=== PATIENT | male | born 1960 | race Native Hawaiian/Other Pacific Islander ===

== ENCOUNTER 2017-02-09 18:05 | Emergency (ER) | payer OTHER ==
[2017-02-09 18:08] VITALS: BMI 29.0
[2017-02-09] MEDS ORDERED: Albuterol-Ipratrop 3 mg / 0.5 (3 ml) UD INH STA (18:10)
[2017-02-09 18:13] VITALS: RESP 18
[2017-02-09] MEDS ORDERED: Albuterol-Ipratrop 3 mg / 0.5 (3 ml) UD ONE (18:15)
--- NOTE | 2017-02-09 18:16 | C.PDOC ---
History Of Present Illness 56 y/o male has hx of asthma and presents to the ED c/o coughing and itchy throat that has been worsening the last few days. The DELIVERY DRIVER gave the patient antibiotics to alleviate his symptoms. The patient states "that he has never been hospitalized or intubated before in his life". The patient denies fever, chills,chest pain, headaches, and sore throat. Time Seen by Provider: 02/09/17 18:06 Chief Complaint (Nursing): Shortness Of Breath History Per: Patient History/Exam Limitations: no limitations Onset/Duration Of Symptoms: Days Current Symptoms Are (Timing): Still Present Past Medical History Reviewed: Historical Data, Nursing Documentation, Vital Signs Vital Signs: Last Vital Signs Temp 98.1 F 02/09/17 18:57 Pulse 88 02/09/17 18:57 Resp 18 02/09/17 18:57 BP 118/77 02/09/17 18:57 Pulse Ox 99 02/09/17 18:57 - Medical History PMH: Asthma, HTN Denies: Chronic Kidney Disease Surgical History: No Surg Hx Family History: States: Unknown Family Hx - Social History Hx Tobacco Use: Yes (some days) Hx Alcohol Use: Yes (SOCIALLY) Hx Substance Use: No - Immunization History Hx Tetanus Toxoid Vaccination: No Hx Influenza Vaccination: Yes Hx Pneumococcal Vaccination: No Review Of Systems Except As Marked, All Systems Reviewed And Found Negative. Constitutional: Negative for: Fever, Chills Cardiovascular: Negative for: Chest Pain Respiratory: Positive for: Cough. Negative for: Shortness of Breath Physical Exam - Physical Exam Appears: Non-toxic, No Acute Distress Skin: Warm, Dry Oral Mucosa: Moist Throat: Erythema (Pharynx ), No Exudate, No Drooling Neck: Supple Chest: Symmetrical, No Deformity, No Tenderness Cardiovascular: Rhythm Regular Respiratory: No Rales, No Rhonchi, Other (mild diminish breathe sound bilaterally) Gastrointestinal/Abdominal: Soft, No Tenderness, No Guarding, No Rebound Extremity: Normal ROM, Capillary Refill (<2sec.) Neurological/Psych: Oriented x3, Normal Speech, Normal Cognition Gait: Steady ED Course And Treatment Progress Note: The patient received a chest X ray. The patient was administered Albuterol, Prednisone, and an inhaled Nebulizer. Medical Decision Making Medical Decision Making: cxr neg. neb given, prednisone dosed. pt reports improvement. cxr neg as read by me. strep, influenza neg. Disposition - Disposition Disposition: HOME/ ROUTINE Disposition Time: 07:00 Condition: STABLE Additional Instructions: return to er with worsening symptoms or concerns. Prescriptions: predniSONE [predniSONE Tab] 50 mg PO DAILY #3 tab Prednisone 50 mg PO DAILY #3 tablet Instructions: Tonsillitis (ED), Viral Syndrome (ED) Forms: [employer] (Albanian) - Clinical Impression Clinical Impression: Bronchitis - Scribe Statement The provider has reviewed the documentation as recorded by the Scribjamie Burgess All medical record entries made by the Josefibjamie were at my direction and personally dictated by me. I have reviewed the chart and agree that the record accurately reflects my personal performance of the history, physical exam, medical decision making, and the department course for this patient. I have also personally directed, reviewed, and agree with the discharge instructions and disposition.
[2017-02-09 18:59] VITALS: BP 118/77; PULSE 88; TEMP 98.1; O2SAT 99
--- NOTE | 2017-02-10 12:14 | RAD ---
HISTORY: cough COMPARISON: No prior. FINDINGS: LUNGS: No active pulmonary disease. PLEURA: No significant pleural effusion identified, no pneumothorax apparent. CARDIOVASCULAR: Normal. OSSEOUS STRUCTURES: No significant abnormalities. VISUALIZED UPPER ABDOMEN: Normal. OTHER FINDINGS: None. IMPRESSION: No active disease.
== END 2017-02-09 19:00 | disposition home or self-care (01) ==
LOC: C.ER 18:05
DX: J40 Bronchitis, not specified as acute or chronic (principal)

== ENCOUNTER 2017-06-21 00:59 | Emergency (ER) | payer OTHER ==
[2017-06-21 00:59] VITALS: BMI 29.0
[2017-06-21 01:06] VITALS: RESP 20; O2SAT 97
--- NOTE | 2017-06-21 01:15 | C.PDOC ---
History Of Present Illness 56 year old male presents to the ED c/o right 3rd and 4th toe pain that started earlier tonight while attending a concert. Patient denies known trauma, fever or other complaints. Time Seen by Provider: 06/21/17 01:03 Chief Complaint (Nursing): Lower Extremity Problem/Injury History Per: Patient History/Exam Limitations: no limitations Onset/Duration Of Symptoms: Hrs Current Symptoms Are (Timing): Still Present Additional History Per: Patient - Ankle/Foot Description Of Injury: Other Past Medical History Reviewed: Historical Data, Nursing Documentation, Vital Signs Vital Signs: Last Vital Signs Temp 97.7 F 06/21/17 02:19 Pulse 90 06/21/17 02:19 Resp 20 06/21/17 02:19 BP 125/85 06/21/17 02:19 Pulse Ox 97 06/21/17 02:19 - Medical History PMH: Asthma, HTN Denies: Chronic Kidney Disease Surgical History: No Surg Hx Family History: States: Unknown Family Hx - Social History Hx Tobacco Use: Yes (some days) Hx Alcohol Use: Yes (SOCIALLY) Hx Substance Use: No - Immunization History Hx Tetanus Toxoid Vaccination: Yes Hx Influenza Vaccination: Yes Hx Pneumococcal Vaccination: No Review Of Systems Except As Marked, All Systems Reviewed And Found Negative. Musculoskeletal: Positive for: Foot Pain Skin: Positive for: Other (swelling) Physical Exam - Physical Exam Appears: Non-toxic, No Acute Distress Skin: Normal Color, Warm, Dry Head: Atraumatic, Normacephalic Eye(s): bilateral: Normal Inspection Nose: No Discharge, No Deformity Oral Mucosa: Moist Neck: Normal ROM, Supple Chest: Symmetrical Cardiovascular: Rhythm Regular, No Murmur Respiratory: Normal Breath Sounds, No Rales, No Rhonchi, No Wheezing Gastrointestinal/Abdominal: Soft, No Tenderness, No Guarding, No Rebound Extremity: Normal ROM (no pain), Tenderness (mild right 3rd and 4th toes), Capillary Refill (< 2 seconds), No Deformity, Swelling (minimal right 3rd and 4th toes) Pulses: Left Dorsalis Pedis: Normal, Right Dorsalis Pedis: Normal Neurological/Psych: Oriented x3, Normal Speech, Normal Cognition Gait: Steady ED Course And Treatment - Laboratory Results Result Diagrams: 06/21/17 01:47 06/21/17 01:47 O2 Sat by Pulse Oximetry: 97 (On RA) Pulse Ox Interpretation: Normal Medical Decision Making Medical Decision Making: Impression : right 3rd and 4th toe pain and swelling Plan: * Labs * Toradol 30 mg IVP * Right foot X-Ray pt delcines to wait for lab results in er. pain improved. advise outpt fu and return precautions. normal rom. no leukocytosis, afebrile, xr neg as read by me Disposition - Disposition Disposition: HOME/ ROUTINE Disposition Time: 01:00 Condition: STABLE Additional Instructions: follow up with your animal care technician. return to er with worsening symptoms or concerns. Instructions: Foot Sprain (ED), Arthralgia (ED) Forms: [employer] (Mozambican) - Clinical Impression Clinical Impression: Toe pain - Scribe Statement The provider has reviewed the documentation as recorded by the Scribe Mj Calderón All medical record entries made by the Scribe were at my direction and personally dictated by me. I have reviewed the chart and agree that the record accurately reflects my personal performance of the history, physical exam, medical decision making, and the department course for this patient. I have also personally directed, reviewed, and agree with the discharge instructions and disposition.
[2017-06-21 01:50] LABS: BASO # 0.1 K/uL (0.0-0.2); BASO % 1.4 % (0.0-2.0); EOS # 0.2 K/uL (0.0-0.7); EOS % 2.3 % (0.0-4.0); HEMOGLOBIN 16.5 g/dL (12.0-18.0); LYMPH # 3.4 K/uL (1.0-4.3); LYMPH % 37.9 % (20.0-40.0); MEAN CELL VOLUME 91.7 fL (80.0-94.0); MEAN CORPUSCULAR HEMOGLOBIN 31.9 pg (27.0-31.0); MEAN CORPUSCULAR HGB CONC 34.8 g/dL (33.0-37.0); MEAN PLATELET VOLUME 8.9 fL (7.2-11.7); MONO # 0.9 K/uL (0.0-0.8); MONO % 10.2 % (0.0-10.0); NEUT # 4.3 K/uL (1.8-7.0); NEUT % 48.2 % (50.0-75.0); RBC 5.16 Mil/uL (4.40-5.90); RED CELL DISTRIBUTION WIDTH 13.9 % (11.5-14.5)
[2017-06-21 02:19] VITALS: BP 125/85; PULSE 90; TEMP 97.7
[2017-06-21 02:32] LABS: ALB/GLOB RATIO 1.2 (1.0-2.1); ALBUMIN 4.5 g/dL (3.5-5.0); ALT/SGPT 47 U/L (21-72); AST/SGOT 46 U/L (17-59); BLOOD UREA NITROGEN 12 mg/dL (9-20); GFR AFRICAN-AMERICAN > 60; GFR NON-AFRICAN AMERICAN > 60; URIC ACID 7.8 mg/dL (3.5-8.5)
--- NOTE | 2017-06-21 08:31 | RAD ---
PROCEDURE: Right Foot Radiographs. HISTORY: pain COMPARISON: None. FINDINGS: BONES: No acute fracture or destructive bony lesion identified. Accessory ossicle seen medial to the navicular bone. JOINTS: A mild hallux valgus deformity is appreciated with moderate to severe degenerative changes at the 1st metatarsal phalangeal joint. SOFT TISSUES: Normal. OTHER FINDINGS: None. IMPRESSION: No acute fracture or dislocation. Mild hallux valgus deformity noted.
== END 2017-06-21 02:24 | disposition home or self-care (01) ==
LOC: C.ER 00:59
DX: M79.674 Pain in right toe(s) (principal)
CPT/HCPCS: 73630; 80053; 84550; 85025; 86430; 96374; 99284; J1885

== ENCOUNTER 2018-03-26 20:19 | Emergency (ER) | payer OTHER ==
[2018-03-26 20:20] VITALS: BMI 29.0
[2018-03-26 20:32] VITALS: PULSE 105; RESP 18
[2018-03-26] MEDS ORDERED: Albuterol 0.083% Inhal Sol (2.5 mg/3 mL) UD IH STA (20:38)
[2018-03-26] MEDS ORDERED: Sodium Chloride 0.9% 1,000 ML IV ONE (20:40)
[2018-03-26] MEDS ORDERED: Albuterol 0.083% Inhal Sol (2.5 mg/3 mL) UD ONE (20:43)
--- NOTE | 2018-03-26 20:43 | C.PDOC ---
History Of Present Illness 57 year old male presents to the ED complaining of cough and congestion for 1 week. Patient was seen by Dr. Monreal, who prescribed an inhaler and Promethazine DM. He reports that this evening, he took his Promethazine at noon and again around 5:00pm. Around 7:00pm, he felt lightheaded and near syncopal. Patient admits he did not eat or drink anything today since 12:00pm. He otherwise denies any dizziness, visual changes, chest pain, palpitations, SOB, or fall/injury. He continues to c/o a dry cough with congestion. Time Seen by Provider: 03/26/18 20:35 Chief Complaint (Nursing): Cough, Cold, Congestion History Per: Patient History/Exam Limitations: no limitations Onset/Duration Of Symptoms: Days Current Symptoms Are (Timing): Still Present Associated Symptoms: Cough, Nasal Congestion Past Medical History Reviewed: Historical Data, Nursing Documentation, Vital Signs Vital Signs: Last Vital Signs Temp 98.7 F 03/26/18 20:28 Pulse 105 H 03/26/18 20:28 Resp 18 03/26/18 20:28 BP Pulse Ox 97 03/26/18 20:28 - Medical History PMH: Asthma, HTN Denies: Chronic Kidney Disease Surgical History: No Surg Hx Family History: States: Unknown Family Hx - Social History Hx Tobacco Use: Yes (some days) Hx Alcohol Use: Yes (SOCIALLY) Hx Substance Use: No - Immunization History Hx Tetanus Toxoid Vaccination: Yes Hx Influenza Vaccination: Yes Hx Pneumococcal Vaccination: No Review Of Systems Except As Marked, All Systems Reviewed And Found Negative. Constitutional: Negative for: Fever, Chills Eyes: Negative for: Vision Change ENT: Positive for: Nose Discharge, Nose Congestion Cardiovascular: Positive for: Light Headedness (and near syncopal). Negative for: Chest Pain, Palpitations Respiratory: Positive for: Cough. Negative for: Shortness of Breath Gastrointestinal: Negative for: Vomiting, Diarrhea Neurological: Negative for: Weakness, Numbness, Headache, Dizziness Physical Exam - Physical Exam Appears: Well, Non-toxic, No Acute Distress Skin: Warm, Dry Head: Atraumatic, Normacephalic Eye(s): bilateral: Normal Inspection, PERRL, EOMI Nose: Discharge (mild nasal congestion) Oral Mucosa: Moist Neck: Normal ROM, Supple Chest: Symmetrical Cardiovascular: Rhythm Regular (borderline tachycardic), No Murmur Respiratory: Normal Breath Sounds, No Rales, No Rhonchi, No Wheezing Gastrointestinal/Abdominal: Soft, No Tenderness, No Distention Extremity: Bilateral: Atraumatic, Normal Color And Temperature, Normal ROM Neurological/Psych: Oriented x3, Normal Speech, Normal Cranial Nerves, Normal Motor, Normal Sensation, Other (No focal deficits) ED Course And Treatment O2 Sat by Pulse Oximetry: 97 (RA) Pulse Ox Interpretation: Normal Reevaluation Time: 21:22 Reassessment Condition: Improved Medical Decision Making Medical Decision Making: Initial Plan: --IV fluids --Albuterol nebulizer --Peak Flow pre/post neb --Reassess and dispo Disposition Counseled Patient/Family Regarding: Studies Performed, Diagnosis, Need For Followup - Disposition Referrals: Antonio Monreal MD [Staff Provider] - Disposition: HOME/ ROUTINE Disposition Time: 21:25 Condition: IMPROVED Additional Instructions: Use Flonase 2 puffs each nostril daily for nasal congestion. Prescriptions: Methylprednisolone [Medrol Dose Pack (21 tabs)] 4 mg PO DAILY #21 mg Instructions: Upper Respiratory Infection (ED) Forms: [employer] (Persian) - Clinical Impression Clinical Impression: Upper respiratory infection - Scribe Statement The provider has reviewed the documentation as recorded by the Scribe (Rosangela Weston) Provider Attestation: All medical record entries made by the Scribe were at my direction and personally dictated by me. I have reviewed the chart and agree that the record accurately reflects my personal performance of the history, physical exam, medical decision making, and the department course for this patient. I have also personally directed, reviewed, and agree with the discharge instructions and disposition.
[2018-03-26 21:46] VITALS: BP 127/77; TEMP 98; O2SAT 100
== END 2018-03-26 21:45 | disposition home or self-care (01) ==
LOC: C.ER 20:19
DX: J06.9 Acute upper respiratory infection, unspecified (principal)
CPT/HCPCS: 82948; 96360; 99284; J7030

== ENCOUNTER 2018-03-30 17:29 | Emergency (ER) | payer OTHER ==
[2018-03-30 17:29] VITALS: BMI 29.0
[2018-03-30] MEDS ORDERED: Albuterol 0.083% Inhal Sol (2.5 mg/3 mL) UD IH STA ×2 (17:50→19:42)
--- NOTE | 2018-03-30 17:50 | C.PDOC ---
History Of Present Illness Patient presents to ED c/o productive cough with clear sputum, wheezing, SOB, and fever/chills today. He was seen in the ED on Mar 26 for similar symptoms, given medrol dose pack which he has been taking. He denies chest pain or p alpitations, abdominal pain, vomiting/diarrhea, dysuria. Warp Spooler is Dr. Monreal. Time Seen by Provider: 03/30/18 17:43 Chief Complaint (Nursing): Fever Past Medical History Vital Signs: Last Vital Signs Temp 102.4 F H 03/30/18 17:35 Pulse 178 H 03/30/18 17:35 Resp 18 03/30/18 17:35 BP 150/87 03/30/18 17:35 Pulse Ox 97 03/30/18 17:35 - Medical History PMH: Asthma, HTN Denies: Chronic Kidney Disease Family History: States: Unknown Family Hx - Social History Hx Tobacco Use: Yes (some days) Hx Alcohol Use: Yes (SOCIALLY) Hx Substance Use: No - Immunization History Hx Tetanus Toxoid Vaccination: Yes Hx Influenza Vaccination: Yes Hx Pneumococcal Vaccination: No ED Course And Treatment - Laboratory Results Result Diagrams: 03/30/18 18:24 03/30/18 18:24 O2 Sat by Pulse Oximetry: 97 Disposition Counseled Patient/Family Regarding: Studies Performed, Diagnosis, Need For F ollowup, Rx Given - Disposition Referrals: Antonio Monreal MD [Staff Provider] - Disposition: HOME/ ROUTINE Disposition Time: 21:10 Condition: STABLE Additional Instructions: FOLLOW UP WITH DR MONREAL TOMORROW IN THE OFFICE USE MEDICATIONS DIRECTED RETURN TO ER IF SYMPTOMS WORSEN Prescriptions: Amoxicillin/Clavulanate [Augmentin 875 MG-125 MG] 1 tab PO BID #14 tab Benzonatate [Tessalon Perles] 100 mg PO BID PRN #15 sgl PRN Reason: Cough predniSONE [predniSONE Tab] 40 mg PO DAILY #6 tab Instructions: Exacerbation of COPD (DC) Forms: [employer] (Macedonian) Print Language: SOUTH AFRICAN - Clinical Impression Clinical Impression: Upper respiratory infection, Fever, COPD exacerbation
[2018-03-30] MEDS ORDERED: Albuterol 0.083% Inhal Sol (2.5 mg/3 mL) UD ONE (17:56)
[2018-03-30 18:27] LABS: BASO # 0.1 K/uL (0.0-0.2); BASO % 0.6 % (0.0-2.0); EOS % 0.3 % (0.0-4.0); HEMOGLOBIN 15.5 g/dL (12.0-18.0); LYMPH # 3.4 K/uL (1.0-4.3); LYMPH % 20.5 % (20.0-40.0); MEAN CELL VOLUME 89.9 fL (80.0-94.0); MEAN CORPUSCULAR HEMOGLOBIN 30.4 pg (27.0-31.0); MEAN CORPUSCULAR HGB CONC 33.8 g/dL (33.0-37.0); MEAN PLATELET VOLUME 10.1 fL (7.2-11.7); MONO # 1.4 K/uL (0.0-0.8); MONO % 8.4 % (0.0-10.0); NEUT # 11.6 K/uL (1.8-7.0); NEUT % 70.2 % (50.0-75.0); RBC 5.11 Mil/uL (4.40-5.90); RED CELL DISTRIBUTION WIDTH 13.8 % (11.5-14.5); WHITE BLOOD COUNT 16.6 K/uL (4.8-10.8)
[2018-03-30] MEDS ORDERED: Sodium Chloride 0.9% 1,000 ML IV ONE ×2 (18:27→19:41)
[2018-03-30 18:28] LABS: VENOUS BLOOD GAS PCO2 32 mmHg (40-60); VENOUS BLOOD GAS PO2 82 mm/Hg (30-55); VENOUS BLOOD PH 7.45 (7.32-7.43)
[2018-03-30] MEDS ORDERED: Albuterol-Ipratrop 3 mg / 0.5 (3 ml) UD INH STA (18:34)
[2018-03-30 18:39] LABS: BLOOD UREA NITROGEN 20 mg/dL (9-20); CALCIUM 9.1 mg/dl (8.6-10.4); GFR NON-AFRICAN AMERICAN > 60
[2018-03-30 18:41] LABS: ALB/GLOB RATIO 1.3 (1.0-2.1); ALBUMIN 4.5 g/dL (3.5-5.0); ALT/SGPT 31 U/L (21-72); AST/SGOT 33 U/L (17-59)
[2018-03-30 18:48] LABS: URINE BILIRUBIN NEGATIVE (NEGATIVE); URINE BLOOD NEGATIVE (NEGATIVE); URINE CLARITY Clear (Clear); URINE COLOR Yellow (YELLOW); URINE GLUCOSE (UA) NORMAL (Normal); URINE LEUKOCYTE ESTERASE NEG Leu/uL (Negative); URINE PROTEIN NEGATIVE (NEGATIVE); URINE UROBILINOGEN NORMAL mg/dL (0.2-1.0)
[2018-03-30 18:51] LABS: CK-MB 1.43 ng/mL (0.0-3.38)
[2018-03-30] MEDS ORDERED: Albuterol-Ipratrop 3 mg / 0.5 (3 ml) UD ONE (19:49)
[2018-03-30 21:02] VITALS: BP 126/67; PULSE 105; RESP 18; TEMP 99
[2018-03-30 21:11] VITALS: O2SAT 97
[2018-03-30] MEDS ORDERED: Amoxicillin-Clav 875-125 mg Tab PO STA (21:20)
[2018-03-30] MEDS ORDERED: Amoxicillin-Clav 875-125 mg Tab PO ONE (21:28)
--- NOTE | 2018-03-31 08:21 | RAD ---
Date of service: 03/30/2018 HISTORY: COUGH, TACHYCARDIA COMPARISON: 02/09/2017 FINDINGS: LUNGS: Mild venous congestion. Patchy increased markings in the left lung base. Right hilar prominence. PLEURA: No significant pleural effusion identified, no pneumothorax apparent. CARDIOVASCULAR: No aortic atherosclerotic calcification present. Tortuous ectatic aorta. Normal cardiac size. No pulmonary vascular congestion. OSSEOUS STRUCTURES: No significant abnormalities. VISUALIZED UPPER ABDOMEN: Normal. OTHER FINDINGS: None. IMPRESSION: Mild venous congestion. Patchy increased markings in the left lung base. Right hilar prominence.
--- NOTE | 2018-03-31 12:44 | CARD ---
APPROVED REPORT Date of service: 03/30/2018 EKG Measurement Heart [id number] CT [id number] <Conclusion> Sinus tachycardia Otherwise normal ECG
== END 2018-03-30 21:29 | disposition home or self-care (01) ==
LOC: C.ER 17:29
DX: J44.1 Chronic obstructive pulmonary disease with (acute) exacerbation (principal); J06.9 Acute upper respiratory infection, unspecified; R50.9 Fever, unspecified; I10 Essential (primary) hypertension; Z72.0 Tobacco use
CPT/HCPCS: 71045; 80053; 81001; 82550; 82553; 82803; 84484; 85025; 87040; 87070; 87804; 93005; 94640; 96361; 96374; 99285; J2930; J7030

== ENCOUNTER 2018-04-06 21:08 | Emergency (ER) | payer OTHER ==
[2018-04-06 21:09] VITALS: BMI 29.0
--- NOTE | 2018-04-06 21:49 | C.PDOC ---
History Of Present Illness 57 year old male presents to the ED for evaluation of loss of voice and persistent productive cough. Patient is s/p PO Augmentin and Albuterol treatment. He denies fever, chills, shortness of breath, and wheezing. Time Seen by Provider: 04/06/18 21:13 Chief Complaint (Nursing): Cough, Cold, Congestion History Per: Patient History/Exam Limitations: no limitations Onset/Duration Of Symptoms: Days Current Symptoms Are (Timing): Still Present Past Medical History Vital Signs: Last Vital Signs Temp 98.6 F 04/06/18 21:14 Pulse 115 H 04/06/18 21:14 Resp 22 04/06/18 21:14 BP 138/87 04/06/18 21:14 Pulse Ox 95 04/06/18 21:14 - Medical History PMH: Asthma, HTN Denies: Chronic Kidney Disease Family History: States: Unknown Family Hx - Social History Hx Tobacco Use: Yes (some days) Hx Alcohol Use: Yes (SOCIALLY) Hx Substance Use: No - Immunization History Hx Tetanus Toxoid Vaccination: Yes Hx Influenza Vaccination: Yes Hx Pneumococcal Vaccination: No ED Course And Treatment O2 Sat by Pulse Oximetry: 95 (on RA) Pulse Ox Interpretation: Normal Disposition - Disposition Referrals: Antonio Monreal MD [Staff Provider] - Prescriptions: Benzonatate [Tessalon Perles] 100 mg PO BID PRN #15 sgl PRN Reason: Cough Instructions: Viral Upper Respiratory Infection, Adult (DC), Laryngitis (DC) Forms: [employer] (Libyan), Work Excuse Print Language: MONTSERRATIAN - Clinical Impression Clinical Impression: Laryngitis, Viral upper respiratory illness - Scribe Statement The provider has reviewed the documentation as recorded by the Scribe (Lizeth Mccollum) Provider Attestation: All medical record entries made by the Scribe were at my direction and personally dictated by me. I have reviewed the chart and agree that the record accurately reflects my personal performance of the history, physical exam, medical decision making, and the department course for this patient. I have also personally directed, reviewed, and agree with the discharge instructions and disposition.
--- NOTE | 2018-04-06 21:50 | C.PDOC ---
History Of Present Illness 57 year old male presents to the ED for evaluation of loss of voice since today and persistent productive cough. Patient is s/p PO Augmentin and Albuterol treatments. He denies fever, chills, shortness of breath, and wheezing. Time Seen by Provider: 04/06/18 21:13 Chief Complaint (Nursing): Cough, Cold, Congestion History Per: Patient History/Exam Limitations: no limitations Onset/Duration Of Symptoms: Hrs, Persistent Current Symptoms Are (Timing): Still Present Associated Symptoms: Cough, Sputum. denies: Fever, Chills Additional History Per: Patient Past Medical History Reviewed: Historical Data, Nursing Documentation, Vital Signs Vital Signs: Last Vital Signs Temp 98.6 F 04/06/18 21:14 Pulse 115 H 04/06/18 21:14 Resp 22 04/06/18 21:14 BP 138/87 04/06/18 21:14 Pulse Ox 95 04/06/18 21:14 - Medical History PMH: Asthma, HTN Denies: Chronic Kidney Disease Surgical History: No Surg Hx Family History: States: Unknown Family Hx - Social History Hx Tobacco Use: Yes (some days) Hx Alcohol Use: Yes (SOCIALLY) Hx Substance Use: No - Immunization History Hx Tetanus Toxoid Vaccination: Yes Hx Influenza Vaccination: Yes Hx Pneumococcal Vaccination: No Review Of Systems Constitutional: Negative for: Fever, Chills ENT: Positive for: Other (loss of voice ) Respiratory: Positive for: Cough, Sputum. Negative for: Shortness of Breath, Wheezing Physical Exam - Physical Exam Appears: Non-toxic, No Acute Distress Skin: Normal Color, Warm, Dry Head: Atraumatic, Normacephalic Eye(s): bilateral: Normal Inspection Ear(s): Bilateral: Normal Nose: Normal, No Discharge Oral Mucosa: Moist Throat: Normal, No Erythema, No Exudate, Other (hoarse voice noted ) Neck: Supple Chest: Symmetrical, No Deformity, No Tenderness Cardiovascular: Rhythm Regular, No Murmur Respiratory: Normal Breath Sounds, No Rales, No Rhonchi, No Wheezing Extremity: Normal ROM Neurological/Psych: Oriented x3, Normal Speech, Normal Cognition ED Course And Treatment O2 Sat by Pulse Oximetry: 95 Progress Note: CXR ordered and reviewed. Disposition Counseled Patient/Family Regarding: Studies Performed, Diagnosis, Need For Followup - Disposition Referrals: Antonio Monreal MD [Staff Provider] - Disposition Time: 21:50 Prescriptions: Benzonatate [Tessalon Perles] 100 mg PO BID PRN #15 sgl PRN Reason: Cough Instructions: Viral Upper Respiratory Infection, Adult (DC), Laryngitis (DC) Forms: [employer] [employer] (Lao), Work Excuse Print Language: GREENLANDIC - Clinical Impression Clinical Impression: Laryngitis, Viral upper respiratory illness - Scribe Statement The provider has reviewed the documentation as recorded by the Scribe (Lizeth Mccollum) Provider Attestation: All medical record entries made by the Scribe were at my direction and personally dictated by me. I have reviewed the chart and agree that the record accurately reflects my personal performance of the history, physical exam, medical decision making, and the department course for this patient. I have also personally directed, reviewed, and agree with the discharge instructions and disposition.
[2018-04-06 22:06] VITALS: BP 117/77; PULSE 103; RESP 17; TEMP 98.4; O2SAT 97
--- NOTE | 2018-04-07 09:37 | RAD ---
HISTORY: Cough COMPARISON: No prior. TECHNIQUE: Chest PA and lateral FINDINGS: LINES AND TUBES: None. LUNG AND PLEURA: The lungs are well inflated and clear. No pleural effusion or pneumothorax. HEART AND MEDIASTINUM: The heart is not enlarged. No aortic atherosclerotic calcification present. The hilar and mediastinal contours are within normal limits. SKELETAL STRUCTURES: The bony structures are within normal limits for the patient's age. VISUALIZED UPPER ABDOMEN: Normal. OTHER FINDINGS: None. IMPRESSION: No active pulmonary disease.
== END 2018-04-06 22:06 | disposition home or self-care (01) ==
LOC: C.ER 21:08
DX: J04.0 Acute laryngitis (principal)